=== PATIENT | female | born 1965 | race African-American/Black ===

== ENCOUNTER → 2017-02-02 | Outpatient (CLI) | payer OTHER ==
[~2017-02-02] MED LIST: IBUPROFEN 600600 M1 PO; NOHOMEMEDICATIONS; NORCO 5-325 TA1 EACH PO; PROMETHAZINE-C120 ML PO; ULTRAM 50MG TAB50 MG PO; ZPAK PO
== END ==
LOC: MRI 14:41
DX: M23.8X2 Other internal derangements of left knee (principal)

== ENCOUNTER 2017-02-09 05:25 | Day surgery (SDC) | payer OTHER ==
[~2017-02-09] VITALS: Ht 162.6 cm; Wt 85.6 kg
--- NOTE | ~2017-02-09 | O ---
[facility] [place] [address] OPERATIVE REPORT Name: DEVORA TREVIÑO Room #: 150-4 [facility]#: [id number] Admission: 02/09/17 Attend Phys: Wes Bowling MD Discharge: Date of : 67 Report #: [id number] THIS REPORT FOR: //name// CC: Wes Solomon DATE OF SERVICE: 02/09/2017 PREOPERATIVE DIAGNOSIS: Left knee degenerative medial meniscus tear. POSTOPERATIVE DIAGNOSES: 1. Left knee degenerative medial meniscus tear. 2. Grade 3 chondromalacia of the medial femoral condyle. PROCEDURE: 1. Left knee arthroscopy with partial medial meniscectomy. 2. Chondroplasty of the medial femoral condyle. SURGEON: Wes Bowling MD. PUBLIC POLICY MANAGER: Cira Yang PA-C. ANESTHESIA: LMA. TOURNIQUET TIME: Approximately 20 minutes. COMPLICATIONS: None. SPECIMENS: None. CONDITION UPON LEAVING THE OPERATING ROOM: Stable. INDICATIONS FOR PROCEDURE: The patient is a 51-year-old female, who has had medial-sided left knee pain. She had an MRI scan showing to have a degenerative tear of the posterior horn of the medial meniscus and after discussion with her, she elected for left knee arthroscopy with partial medial meniscectomy and debridement as needed. DESCRIPTION OF PROCEDURE: Risks, benefits, alternatives, and complications were discussed in detail with the patient including but not limited to risk of anesthesia, risk of damage to nerves, arteries, blood vessels, risk for infection, bleeding, risk for continued knee pain, and need for reoperation. An informed consent was obtained from the patient. The left knee was appropriately marked in the preoperative holding area. IV Ancef was given for preoperative antibiotics. She was brought to the operating room and placed in the supine position on the operating room table. LMA anesthesia was induced without [facility] [address] [place] [address] OPERATIVE REPORT Name: DEVORA TREVIÑO Room #: 150-4 [facility]#: [id number] Admission: 02/09/17 Attend Phys: Wes Bowling MD Discharge: Date of : 67 Report #: [id number] complication. Tourniquet was placed on the left thigh. Left lower extremity was prepped and draped in the normal sterile fashion. A timeout was performed properly identifying the patient and procedure, as well as the instrumentation. All in the operating room were in agreement. Left lower extremity was exsanguinated and tourniquet was inflated. Tourniquet time was 20 minutes. Standard anterolateral portal was established with an #11 blade through the skin. Arthroscope was introduced into the patellofemoral compartment, diagnostic arthroscopy was undertaken. Patellofemoral compartment was visualized and found to be without pathology. Medial gutter was visualized and found to be without pathology. Medial compartment was visualized and medial portal was established under arthroscopic visualization. Probe was introduced into the medial compartment, and there was noted to be a complex degenerative type tear of the posterior horn of the medial meniscus. In addition, there was grade 3 chondromalacia of the medial femoral condyle. Partial meniscectomy was then performed with an arthroscopic biter, as well as arthroscopic shaver. Chondroplasty of the medial femoral condyle was performed. Notch was visualized and found to have an intact anterior cruciate ligament. Lateral compartment was visualized and found to have an intact lateral meniscus. Scope was placed back in the patellofemoral compartment, and the fluid was suctioned out of the joint, and knee was injected with 10 mL of 0.5% Marcaine. Incision was closed with 3-0 nylon. Soft dressing of Adaptic, 4 x 4, Webril, and Rao wrap were applied. The patient tolerated this procedure well and went to the recovery room under the care of anesthesia postoperatively. By: 0851 [id number] Wes Bowling MD /waylon
[2017-02-09 07:02] VITALS: BP 138/99
[2017-02-09] MEDS ORDERED: HYDROCODONE-AP1 EAC6 PO (08:15)
[2017-02-09] MEDS ORDERED: CRUTCHES MISCELL (08:15)
[2017-02-09 08:57] VITALS: BP 138/99
== END 2017-02-09 09:40 | disposition home or self-care (01) ==
LOC: OR 05:25 → TBA 05:25 → OR 09:40
DX: M23.222 Derangement of posterior horn of medial meniscus due to old tear or injury, left knee (principal); M94.262 Chondromalacia, left knee
CPT/HCPCS: 50010; 50101; 50405; 50612; 51038; 54170; 56526; 62110; 62900; 70005

== ENCOUNTER 2017-07-02 05:37 | Emergency (ER) | payer OTHER ==
[~2017-07-02] VITALS: Ht 162.6 cm; Wt 77.1 kg
[~2017-07-02 05:37] MED LIST changes: +CRUTCHES MISCELL; +HYDROCODONE-AP1 EAC6 PO
[2017-07-02] MEDS ORDERED: GUAIFEN-CODEINE10 ML PO (05:56)
[2017-07-02 06:11] VITALS: BP 121/86
== END 2017-07-02 07:34 | disposition home or self-care (01) ==
LOC: ER 05:37
DX: R05 Cough (principal); F10.99 Alcohol use, unspecified with unspecified alcohol-induced disorder

== ENCOUNTER → 2017-08-23 | Outpatient (CLI) | payer OTHER ==
[~2017-08-23] MED LIST changes: +GUAIFEN-CODEINE10 ML PO
== END ==
LOC: RAD 14:53
DX: Z12.31 Encounter for screening mammogram for malignant neoplasm of breast (principal)

== ENCOUNTER → 2017-12-28 | Outpatient (CLI) | payer OTHER ==
[~2017-12-28] MED LIST changes: +IBUPROFEN 800800 M1 PO; +TRAMADOL 50 MG50 MG PO
== END ==
LOC: RAD 14:13
DX: M25.461 Effusion, right knee (principal)

== ENCOUNTER → 2018-01-07 | Outpatient (CLI) | payer OTHER ==
[~2018-01-07] MED LIST changes: -IBUPROFEN 800800 M1 PO; -TRAMADOL 50 MG50 MG PO
== END ==
LOC: MRI 05:56
DX: M23.8X1 Other internal derangements of right knee (principal); M25.48 Effusion, other site; M71.20 Synovial cyst of popliteal space [Baker], unspecified knee; R60.9 Edema, unspecified

== ENCOUNTER 2018-02-02 05:51 | Day surgery (SDC) | payer OTHER ==
[~2018-02-02] VITALS: Ht 165.1 cm; Wt 88.0 kg
--- NOTE | ~2018-02-02 | O ---
[facility] [place] [address] OPERATIVE REPORT Name: DEVORA TREVIÑO Room #: 150-4 [facility].#: [id number] Admission: 02/02/18 Attend Phys: Wes Bowling MD Discharge: Date of : 67 Report #: [id number] THIS REPORT FOR: //name// CC: Wes Solomon DATE OF SERVICE: 02/02/2018 PREOPERATIVE DIAGNOSIS: Right knee horizontal medial meniscus tear. POSTOPERATIVE DIAGNOSES: 1. Right knee horizontal posterior horn medial meniscus tear. 2. Grade 3 chondromalacia of medial femoral condyle. PROCEDURE: Right knee arthroscopy with partial medial meniscectomy. SURGEON: Wes Bowling MD. APPRAISER TIMBER: None. ANESTHESIA: LMA. TOURNIQUET TIME: 15 minutes. COMPLICATIONS: None. SPECIMENS: None. CONDITION UPON LEAVING THE OPERATING ROOM: Stable. INDICATIONS FOR PROCEDURE: The patient is a 52-year-old female who has had medial-sided right knee pain. She had an MRI scan showing her to have a horizontal tear of the posterior horn of the medial meniscus and after discussion with her, she elected for right knee arthroscopy with partial medial meniscectomy and debridement as needed. DESCRIPTION OF PROCEDURE: Risks, benefits, alternatives, complications were discussed in detail with the patient including, but not limited to risk of anesthesia, risk of damage to nerves, arteries, blood vessels, risk for infection, bleeding, risk for continued knee pain and need for reoperation. Informed consent was obtained from the patient. Right knee was appropriately marked in the preoperative holding area. IV Ancef was given for preoperative antibiotics. She was brought to the operating room and placed in the supine position on the operating room table. LMA anesthesia was induced without complication. Tourniquet was placed on the right thigh. Right lower extremity was prepped and draped in normal sterile fashion. Timeout was performed [address] [address] OPERATIVE REPORT Name: DEVORA TREVIÑO Room #: 150-4 [id number] Admission: 02/02/18 Attend Phys: Wes Bowling MD Discharge: Date of : 67 Report #: [id number] properly identifying the patient and procedure as well as the instrumentation. All in the operating room were in agreement. Right lower extremity was exsanguinated, tourniquet was inflated. Tourniquet time was 15 minutes. Standard anterolateral portal was established with an 11 blade through the skin. Arthroscope was introduced into the patellofemoral compartment. Diagnostic arthroscopy was undertaken. Patellofemoral compartment was visualized and found to be without pathology. Medial gutter was visualized and found to be without pathology. Medial compartment visualized and medial portal was established under arthroscopic visualization. Probe was introduced into the medial compartment and there was noted to be a horizontal tear of the posterior horn of the medial meniscus. This was trimmed back with an arthroscopic biter and smoothed back with an arthroscopic shaver. There was also noted to be grade 3 chondromalacia of the medial femoral condyle. Notch was visualized and found to have an intact anterior cruciate ligament. Lateral compartment was visualized and found to have an intact lateral meniscus. Scope was placed back in the patellofemoral compartment and all fluid was drained. The knee was injected with 10 mL of 0.5% Marcaine. Incision was closed with 3-0 nylon. Soft dressing of Adaptic, 4 x 4, Webril, Rao wrap were applied. The patient tolerated this procedure well and went to recovery room under care of anesthesia postoperatively. By: [id number] Wes Bowling MD /nt
[~2018-02-02 05:51] MED LIST changes: +IBUPROFEN 800800 M1 PO; +TRAMADOL 50 MG50 MG PO
[2018-02-02 11:34] VITALS: BP 151/90
[2018-02-02] MEDS ORDERED: HYDROCODONE-AP1 EAC6 PO (15:19)
[2018-02-02 15:41] VITALS: BP 151/90
== END 2018-02-02 16:35 | disposition home or self-care (01) ==
LOC: OR 05:51 → TBA 05:51 → OR 09:36
DX: M23.221 Derangement of posterior horn of medial meniscus due to old tear or injury, right knee (principal); M94.261 Chondromalacia, right knee; Z98.890 Other specified postprocedural states; Z87.891 Personal history of nicotine dependence
CPT/HCPCS: 50010; 50101; 50405; 51038; 54170; 56526; 62110; 62900; 70005

== ENCOUNTER → 2018-10-19 | Outpatient (CLI) | payer OTHER | LOC: RAD 14:38 | DX: Z12.31 Encounter for screening mammogram for malignant neoplasm of breast (principal) ==

== ENCOUNTER 2019-01-28 18:34 | Emergency (ER) | payer OTHER ==
[~2019-01-28] VITALS: Ht 162.6 cm; Wt 87.5 kg
[2019-01-28] MEDS ORDERED: MOBIC15 MG PO (22:08)
[2019-01-28 22:34] VITALS: BP 181/106
== END 2019-01-28 22:36 | disposition home or self-care (01) ==
LOC: ER 18:34
DX: M25.571 Pain in right ankle and joints of right foot (principal); R22.41 Localized swelling, mass and lump, right lower limb

== ENCOUNTER → 2019-11-03 | Outpatient (CLI) | payer OTHER ==
[~2019-11-03] MED LIST changes: +MOBIC15 MG PO
== END ==
LOC: RAD 13:15
DX: Z12.31 Encounter for screening mammogram for malignant neoplasm of breast (principal)

== ENCOUNTER → 2020-04-09 | Outpatient (CLI) | payer OTHER ==
[2020-04-09 11:07] LABS: FOLIC ACID 19.8 ng/mL (8.6-58.9); TSH 0.898 uIU/mL (0.358-3.740)
[2020-04-09 11:25] LABS: CALCIUM 9.1 mg/dL (8.5-10.1); POTASSIUM 3.9 mmol/L (3.5-5.1); TOTAL BILIRUBIN 0.7 mg/dL (0.2-1.0); TOTAL PROTEIN 7.3 g/dL (6.4-8.2)
[2020-04-10 01:06] LABS: GLYCOHEMOGLOBIN (HGB A1C) 5.8 % (4.8-5.6)
== END ==
LOC: LAB 09:46
PROVIDERS: ATTEND Family Medicine
DX: E55.9 Vitamin D deficiency, unspecified (principal); R20.0 Anesthesia of skin

== ENCOUNTER 2020-06-21 09:01 | Emergency (ER) | payer OTHER ==
[~2020-06-21] VITALS: Ht 162.6 cm; Wt 86.2 kg
[2020-06-21 12:01] VITALS: BP 146/90
== END 2020-06-21 12:02 | disposition home or self-care (01) ==
LOC: ER 09:01
DX: S61.012A Laceration without foreign body of left thumb without damage to nail, initial encounter (principal); Z79.899 Other long term (current) drug therapy; W26.0XXA Contact with knife, initial encounter; Y93.89 Activity, other specified; Y92.89 Other specified places as the place of occurrence of the external cause; Y99.8 Other external cause status

== ENCOUNTER 2020-07-04 13:03 | Emergency (ER) | payer OTHER ==
[~2020-07-04] VITALS: Ht 162.6 cm; Wt 86.2 kg
[2020-07-04 13:11] VITALS: BP 151/87
[2020-07-04] MEDS ORDERED: NOHOMEMEDICATIONS (13:12)
== END 2020-07-04 13:49 | disposition home or self-care (01) ==
LOC: ER 13:03
DX: S61.012D Laceration without foreign body of left thumb without damage to nail, subsequent encounter (principal); X58.XXXD Exposure to other specified factors, subsequent encounter

== ENCOUNTER 2021-04-16 10:23 | Emergency (ER) | payer OTHER ==
[~2021-04-16] VITALS: Ht 162.6 cm; Wt 86.2 kg
[2021-04-16 10:30] VITALS: BP 144/102
[2021-04-16] MEDS ORDERED: PREDNISONE 20 M20 MG PO (11:48)
[2021-04-16] MEDS ORDERED: DOXYCYCLINE 10100 MG PO (11:48)
[2021-04-16] MEDS ORDERED: PROMETH-CODEIN 65 ML PO (11:48)
== END 2021-04-16 11:49 | disposition home or self-care (01) ==
LOC: ER 10:23
DX: R05 Cough (principal); R09.89 Other specified symptoms and signs involving the circulatory and respiratory systems; Z20.822 Contact with and (suspected) exposure to COVID-19; Z98.51 Tubal ligation status

== ENCOUNTER → 2021-10-23 | Outpatient (CLI) | payer OTHER ==
[~2021-10-23] MED LIST changes: +DOXYCYCLINE 10100 MG PO; +PREDNISONE 20 M20 MG PO; +PROMETH-CODEIN 65 ML PO
== END ==
LOC: RAD 11:21
PROVIDERS: ATTEND Family Medicine
DX: Z12.31 Encounter for screening mammogram for malignant neoplasm of breast (principal); N64.89 Other specified disorders of breast